=== PATIENT | female | born 1930 | race Caucasian/White ===

== ENCOUNTER → 2017-05-14 | Outpatient (CLI) | payer OTHER, MEDICARE | END | disposition home or self-care (01) | LOC: RD 15:56 | DX: S73.101A Unspecified sprain of right hip, initial encounter (principal); X58.XXXA Exposure to other specified factors, initial encounter; Y92.9 Unspecified place or not applicable ==

== ENCOUNTER 2018-03-08 06:29 | Day surgery (SDC) | payer OTHER, MEDICARE ==
[~2018-03-08] VITALS: Ht 160 cm; Wt 60.3 kg
[2018-03-08 07:07] VITALS: BP 166/70
[2018-03-08 11:51] VITALS: BP 116/50
== END 2018-03-08 10:25 | disposition home or self-care (01) ==
LOC: GI 06:29 → OR 09:00 → GI 10:25
PROVIDERS: Internal Medicine Gastroenterology
PROC: 0DBB8ZX Excision of Ileum, Via Natural or Artificial Opening Endoscopic, Diagnostic (ICD-10-PCS; principal; 2018-03-08 07:30)
DX: K52.9 Noninfective gastroenteritis and colitis, unspecified (principal); K57.30 Diverticulosis of large intestine without perforation or abscess without bleeding; Z85.048 Personal history of other malignant neoplasm of rectum, rectosigmoid junction, and anus; Z92.3 Personal history of irradiation; Z92.21 Personal history of antineoplastic chemotherapy
CPT/HCPCS: 45378; J1200; J1610; J2250; J2310; J3010; J3490